=== PATIENT | female | born 1975 | race American Indian/Alaskan Native ===

== ENCOUNTER 2020-03-11 14:15 | Observation (INO) | payer OTHER ==
[2020-03-11 15:32] LABS: Basophils % (Auto) 0.1 % (0.0-1.8); Eosinophils % (Auto) 0.2 % (0.0-4.3); Hematocrit 36.6 % (30.3-42.9); Hemoglobin 11.6 gm/dl (10.1-14.3); Lymphocytes # (Auto) 1.3 K/mm3 (1.2-5.4); Lymphocytes % (Auto) 13.2 % (13.4-35.0); Mean Corpuscular HGB Conc 32 % (30-34); Mean Corpuscular Volume 82 fl (79-97); Monocytes # (Auto) 0.4 K/mm3 (0.0-0.8); Monocytes % (Auto) 4.3 % (0.0-7.3); Platelet Count 301 K/mm3 (140-440); Red Blood Count 4.46 M/mm3 (3.65-5.03); Red Cell Distribution Width 18.5 % (13.2-15.2)
[2020-03-11 15:54] LABS: Alanine Aminotransferase 34 units/L (7-56); Albumin 4.3 g/dL (3.9-5); BUN/Creatinine Ratio 12; Blood Urea Nitrogen 11 mg/dL (7-17); Calcium 9.7 mg/dL (8.4-10.2); Hemolysis Index 1
[2020-03-11] MEDS ORDERED: ACETAMINOPHEN 325 MG TAB PO ONE (16:00)
[2020-03-11] MEDS ORDERED: ACETAMINOPHEN 325 MG TAB ONE (16:07)
[2020-03-11] MEDS ORDERED: ONDANSETRON 4 MG/2 ML INJ IV ONE ×2 (18:24→20:07)
[2020-03-11] MEDS ORDERED: HYDROmorphone 1 MG/1 ML INJ IV ONE ×4 (18:24→21:35)
--- NOTE | 2020-03-11 18:28 | Emergency Department Report ---
ED Abdominal Pain HPI - General Chief Complaint: Abdominal Pain Stated Complaint: HYPERTENSION/ABD PAIN PUI?: No Time Seen by Provider: 03/11/20 17:42 Source: patient Mode of arrival: Wheelchair Limitations: No Limitations - History of Present Illness Initial Comments: Patient is a 44-year-old female that presents emergency room with complaints of left lower quadrant pain. Patient states that the left lower quadrant pain is a 10 out of 10. Patient states the left lower quadrant pain is radiating to her left flank and back. Patient states the pain is better with rest and worse with movement and palpation. Patient states the pain is also worse with vomiting. Patient also complains of nausea and vomiting. Patient states her symptoms been going on for 2 days. Patient denies constipation. Patient denies blood in her vomitus. Patient denies chest pain. Patient denies shortness of breath. Patient denies fever and chills. Patient found to have high blood pressure. Patient states she stopped taking her blood pressure medication since it makes her dizzy. Patient states she is on 10 mg of Norvasc. Patient states she has Norvasc at home but just will not take it. Patient denies chest pain. Patient denies headache. Patient denies neck pain. Patient denies blurry vision. Patient denies syncope. Patient denies recent travel. Patient denies recent international travel. Patient denies exposure to the novel coronavirus. Patient denies sick contacts. Patient denies fever and chills. Patient denies cough. Patient denies diarrhea. Patient denies coming in contact with anybody with symptoms of the novel coronavirus. MD Complaint: abdominal pain -: Sudden Location: LLQ Radiation: L flank Migration to: no migration Severity: severe Severity scale (0 -10): 10 Quality: stabbing Consistency: constant Improves With: rest Worsens With: movement Associated Symptoms: nausea, vomiting. denies: diarrhea, fever, chills, constipation, dysuria, hematemesis, hematochezia, melena, hematuria, anorexia, syncope - Related Data Home Medications Medication Instructions Recorded Confirmed Last Taken amLODIPine 10 mg PO DAILY 03/12/20 Unknown Allergies Allergy/AdvReac Type Severity Reaction Status Date / Time No Known Allergies Allergy Unverified 03/14/15 13:08 ED Review of Systems ROS: Stated complaint: HYPERTENSION/ABD PAIN Other details as noted in HPI Constitutional: denies: chills, fever Eyes: denies: eye pain, eye discharge, vision change ENT: denies: ear pain, throat pain Respiratory: denies: cough, shortness of breath, wheezing Cardiovascular: denies: chest pain, palpitations Endocrine: no symptoms reported Gastrointestinal: abdominal pain, nausea, vomiting. denies: diarrhea Genitourinary: denies: urgency, dysuria, discharge Musculoskeletal: denies: back pain, joint swelling, arthralgia Skin: denies: rash, lesions Neurological: denies: headache, weakness, paresthesias Psychiatric: denies: anxiety, depression Hematological/Lymphatic: denies: easy bleeding, easy bruising ED Past Medical Hx - Past Medical History Previous Medical History?: Yes Hx Hypertension: Yes Hx Congestive Heart Failure: No Hx Diabetes: No Hx Asthma: No Hx COPD: No Hx HIV: No - Surgical History Past Surgical History?: Yes Additional Surgical History: tubal ligation - Family History Family history: no significant - Social History Smoking Status: Never Smoker Substance Use Type: Alcohol (occasional) - Medications Home Medications: Home Medications Medication Instructions Recorded Confirmed Last Taken Type amLODIPine 10 mg PO DAILY 03/12/20 Unknown History ED Physical Exam - General Limitations: No Limitations General appearance: alert, in no apparent distress - Head Head exam: Present: atraumatic, normocephalic - Eye Eye exam: Present: normal appearance - ENT ENT exam: Present: mucous membranes moist - Neck Neck exam: Present: normal inspection - Respiratory Respiratory exam: Present: normal lung sounds bilaterally. Absent: respiratory distress - Cardiovascular Cardiovascular Exam: Present: regular rate, normal rhythm. Absent: systolic murmur, diastolic murmur, rubs, gallop - GI/Abdominal GI/Abdominal exam: Present: soft, tenderness (Left lower quadrant tenderness, left flank tenderness.), normal bowel sounds - Extremities Exam Extremities exam: Present: normal inspection - Back Exam Back exam: Present: normal inspection, tenderness, CVA tenderness (L) - Neurological Exam Neurological exam: Present: alert, oriented X3 - Psychiatric Psychiatric exam: Present: normal affect, normal mood - Skin Skin exam: Present: warm, dry, intact, normal color. Absent: rash ED Course Vital Signs 03/11/20 03/11/20 03/11/20 14:25 14:29 16:13 Temperature 98.2 F Pulse Rate 68 Respiratory 20 22 16 Rate Blood Pressure 234/121 O2 Sat by Pulse 97 Oximetry 03/11/20 03/11/20 03/11/20 16:16 18:34 18:45 Temperature Pulse Rate 65 63 Respiratory 19 Rate Blood Pressure 219/112 221/116 O2 Sat by Pulse 100 99 100 Oximetry 03/11/20 03/11/20 03/11/20 19:00 19:35 19:45 Temperature Pulse Rate 79 75 61 Respiratory 25 H 28 H 20 Rate Blood Pressure 181/122 181/122 181/122 O2 Sat by Pulse 99 98 Oximetry 03/11/20 03/11/20 03/11/20 20:10 20:15 20:31 Temperature Pulse Rate Respiratory Rate Blood Pressure 198/97 212/112 204/100 O2 Sat by Pulse 99 95 96 Oximetry 03/11/20 03/11/20 03/11/20 20:45 21:21 21:30 Temperature Pulse Rate Respiratory Rate Blood Pressure 198/97 198/97 198/97 O2 Sat by Pulse 97 93 87 Oximetry 03/11/20 03/11/20 03/11/20 21:46 22:00 22:27 Temperature Pulse Rate Respiratory Rate Blood Pressure 198/97 198/97 177/102 O2 Sat by Pulse 100 Oximetry 03/11/20 03/11/20 03/11/20 22:30 22:45 23:00 Temperature Pulse Rate Respiratory Rate Blood Pressure 159/100 148/83 144/88 O2 Sat by Pulse 99 93 95 Oximetry - Reevaluation(s) Reevaluation #1: Patient complaining of severe pain. Patient will be given Dilaudid. Patient will have a CT scan after the IV is placed. 03/11/20 18:25 Reevaluation #2: Patient has CT scan and patient is complaining of severe pain. Patient will be given another milligram of Dilaudid. 03/11/20 20:06 Reevaluation #3: Patient states the pain is better but is starting to increase. Patient will be given 0.5 mg of Dilaudid. Patient will also be given fluids and IV antibiotics. I discussed all results with patient. I discussed plan of care with patient. Patient agrees with plan of care and admission. Patient to be admitted to the hospitalist service. 03/11/20 21:26 - Consultations Consultation #1: Hospitalist consulted for admission. Hospitalist to admit patient. 03/11/20 21:26 ED Medical Decision Making - Lab Data Result diagrams: 03/11/20 14:55 03/11/20 14:55 - Radiology Data Radiology results: report reviewed CT ABDOMEN AND PELVIS WITH CONTRAST HISTORY: llq abd pain. COMPARISON: None. TECHNIQUE: CT images of the abdomen and pelvis were obtained following administ ration of intravenous contrast. All CT scans at this location are performed using CT dose reduction for ALARA by means of automated exposure control. CONTRAST: 100 ml of intravenous contrast administered. FINDINGS: Lungs/bones: Lung bases are clear. There is no acute osseous abnormality. Abdomen/pelvis: On the noncontrast portion of the exam, there is a 3 mm stone at the left UVJ with moderate associated hydronephrosis. Several additional nonobstructing calyceal calculi are present in both kidneys the largest on the left measuring 5 mm in the lower pole and largest on the right measuring 3 mm in the midpole region. No right-sided ureteral stone. There is also left-sided perinephric stranding and generalized parenchymal edema. The liver contains a tiny cyst in the posterior segment. The gallbladder, spleen, pancreas, adrenals, and proximal GI tract appear unremarkable. Urinary bladder and reproductive organs are unremarkable with no acute colonic abnormality. The appendix and terminal ileum appear normal. IMPRESSION: 1. Distal left ureteral stone at the UVJ measuring 3 mm with moderate left-sided hydronephrosis, left-sided edema, and perinephric stranding. 2. Bilateral nonobstructive nephrolithiasis. - Medical Decision Making Patient is a 44-year-old female that presents emergency room with complaints of left lower quadrant pain radiating to left flank and left back. Patient had labs done which were essentially unremarkable. Patient's urine was negative. Patient had symptoms of pyelonephritis versus a kidney stone and patient had a CT scan of the abdomen. Patient CT scan of the abdomen showed pyelonephritis and a 3 mm kidney stone. Patient given fluids and pain medications. Patient's pain slightly improved. Patient also given Flomax. Patient also given antibiotics IV in the ER. Patient also noted on initial evaluation to have elevated blood pressure, patient has been noncompliant with her blood pressure medication. Patient's blood pressure slowly improved after the patient's pain improved. Patient admitted to the hospitalist service for further evaluation and treatment. - Differential Diagnosis uti. Diverticulitis, kidney stone, pyelonephritis, Critical Care Time: Yes Critical care time in (mins) excluding proc time.: 35 Critical care attestation.: If time is entered above; I have spent that time in minutes in the direct care of this critically ill patient, excluding procedure time. Critical Care Time: 35 minutes ED Disposition Clinical Impression: Flank pain, Renal stone, Pyelonephritis, Noncompliance, Hypertensive urgency Abdominal pain Qualifiers: Abdominal location: left lower quadrant Qualified Code(s): R10.32 - Left lower quadrant pain Hydronephrosis Qualifiers: Hydronephrosis type: with renal calculous obstruction Qualified Code(s): N13.2 - Hydronephrosis with renal and ureteral calculous obstruction Hypertension Qualifiers: Hypertension type: essential hypertension Qualified Code(s): I10 - Essential (primary) hypertension Disposition: 09 OP ADMIT IP TO THIS HOSP Is pt being admited?: Yes Does the pt Need Aspirin: No Condition: Critical Time of Disposition: 21:35
--- NOTE | 2020-03-11 20:04 | Cat Scan Report ---
CT ABDOMEN AND PELVIS WITH CONTRAST HISTORY: llq abd pain. COMPARISON: None. TECHNIQUE: CT images of the abdomen and pelvis were obtained following administration of intravenous contrast. All CT scans at this location are performed using CT dose reduction for ALARA by means of automated exposure control. CONTRAST: 100 ml of intravenous contrast administered. FINDINGS: Lungs/bones: Lung bases are clear. There is no acute osseous abnormality. Abdomen/pelvis: On the noncontrast portion of the exam, there is a 3 mm stone at the left UVJ with m oderate associated hydronephrosis. Several additional nonobstructing calyceal calculi are present in both kidneys the largest on the left measuring 5 mm in the lower pole and largest on the right measur ing 3 mm in the midpole region. No right-sided ureteral stone. There is also left-sided perinephric s tranding and generalized parenchymal edema. The liver contains a tiny cyst in the posterior segment. The gallbladder, spleen, pancreas, adrenals, and proximal GI tract appear unremarkable. Urinary bladder and reproductive organs are unremarkable with no acute colonic abnormality. The appen daisy and terminal ileum appear normal. IMPRESSION: 1. Distal left ureteral stone at the UVJ measuring 3 mm with moderate left-sided hydronephrosis, left -sided edema, and perinephric stranding. 2. Bilateral nonobstructive nephrolithiasis. Signer Name: Florentino Zambrano MD Signed: 03/11/2020 8:00 PM Workstation Name: [id number]
[2020-03-11 20:06] LABS: Bilirubin,Urine NEG (Negative); Blood,Urine NEG (Negative); Color,Urine Colorless (Yellow); Mucus,Urine FEW /HPF; Urobilinogen,Urine < 2.0 mg/dL (<2.0); WBC,Urine < 1.0 /HPF (0.0-6.0)
[2020-03-11] MEDS ORDERED: TAMSULOSIN 0.4 MG CAP PO ONE (21:34)
[2020-03-11] MEDS ORDERED: CEFEPIME/NS 2 GM/100 ML 2 GM/100 ML BAG IV ONE (21:34)
[2020-03-11] MEDS ORDERED: SODIUM CHLORIDE 0.9% 1000 ML 1,000 ML IV ONE (21:34)
[2020-03-11] MEDS ORDERED: ONDANSETRON 4 MG/2 ML INJ IV PRN (23:34)
[2020-03-11] MEDS ORDERED: MAGNESIUM HYDROXIDE (MOM) ORAL LIQD UDC PO PRN (23:34)
[2020-03-11] MEDS ORDERED: ACETAMINOPHEN 325 MG TAB PO PRN (23:34)
[2020-03-11] MEDS ORDERED: MORPHINE 2 MG/1 ML INJ IV PRN (23:34)
--- NOTE | 2020-03-11 23:43 | History and Physical Report ---
History of Present Illness Date of examination: 03/11/20 Date of admission: 03/11/2020 Chief complaint: Abdominal Pain History of present illness: Patient is a 44-year-old female presents to the emergency room today complaining of abdominal pain which started about 2 days ago. Abdominal pain is said to be in the left lower quadrant and radiating towards the back and the left flank. She has had associated nausea and vomiting. On a scale of 10 pain was about 10/10 in severity. No known relieving or exacerbating factor. Patient denies any fever or chills, no chest pain no shortness of breath, no headache or dizziness, no diaphoresis. She denies any hematuria or dysuria and she also denies any urinary frequency. Patient denies any sick contacts and no recent travel, no contact with anyone with COVID-19. Patient has known history of hypertension and admits that she has not been quite compliant with her medication-amlodipine 10 mg daily stating that the medication makes her feel dizzy at times. Work-up in the emergency room today including CT scan of the abdomen and pelvis reveals : Distal left ureteral stone at the UVJ measuring 3 mm with moderate left-sided hydronephrosis, left-sided edema, and perinephric stranding. Bilateral nonobstructive nephrolithiasis. Patient commenced on IV fluid and empiric IV antibiotics for pyelonephritis. Past History Past Medical History: hypertension Past Surgical History: Other (Tubal Ligation) Social history: alcohol abuse (Occasional alcohol) Family history: hypertension (Mother and Grand Mother), other (Glaucoma in mother) Medications and Allergies Allergies Allergy/AdvReac Type Severity Reaction Status Date / Time No Known Allergies Allergy Unverified 03/14/15 13:08 Home Medications Medication Instructions Recorded Confirmed Last Taken Type amLODIPine 10 mg PO DAILY 03/12/20 Unknown History Active Meds: Active Medications Acetaminophen (Tylenol) 650 mg PO Q4H PRN PRN Reason: Pain MILD(1-3)/Fever >100.5/DEL [place]STILLO Enoxaparin Sodium (Enoxaparin) 40 mg SUB-Q QDAY@2200 RUI; Protocol Sodium Chloride (Nacl 0.9% 1000 Ml) 1,000 mls @ 150 mls/hr IV DIRECT RUI Cefepime HCl (Cefepime/Ns 1 Gm/100 Ml) 1 gm in 100 mls @ 200 mls/hr IV Q8HR RUI; Protocol Magnesium Hydroxide (Milk Of Magnesia) 30 ml PO Q4H PRN PRN Reason: Constipation Morphine Sulfate (Morphine) 2 mg IV Q4H PRN PRN Reason: Pain, Moderate (4-6) Ondansetron HCl (Zofran) 4 mg IV Q8H PRN PRN Reason: Nausea And Vomiting Sodium Chloride (Sodium Chloride Flush Syringe 10 Ml) 10 ml IV BID RUI Sodium Chloride (Sodium Chloride Flush Syringe 10 Ml) 10 ml IV PRN PRN PRN Reason: LINE FLUSH Review of Systems Constitutional: no fever, no chills Ears, nose, mouth and throat: no nasal congestion, no sore throat Cardiovascular: no chest pain, no palpitations Respiratory: no cough, no shortness of breath Gastrointestinal: abdominal pain, no nausea, no vomiting, no diarrhea Genitourinary Female: pelvic pain, flank pain, no dysuria, no hematuria, no kidney stones Musculoskeletal: no neck pain, no low back pain Integumentary: no rash, no pruritis Neurological: no headaches, no change in mentation Psychiatric: no anxiety, no depression Exam - Constitutional Vitals: Temp Pulse Resp BP Pulse Ox 98.2 F 61 20 144/88 95 03/11/20 14:25 03/11/20 19:45 03/11/20 19:45 03/11/20 23:00 03/11/20 23:00 General appearance: Present: no acute distress, well-nourished - EENT Eyes: Present: PERRL, EOM intact. Absent: scleral icterus ENT: hearing intact, clear oral mucosa, dentition normal - Neck Neck: Present: supple, normal ROM - Respiratory Respiratory effort: normal Respiratory: bilateral: CTA - Cardiovascular Rhythm: regular Heart Sounds: Present: S1 & S2. Absent: gallop, systolic murmur, diastolic murmur, rub - Extremities Extremities: no ischemia, pulses intact, pulses symmetrical, No edema, Full ROM Peripheral Pulses: within normal limits - Abdominal General gastrointestinal: Present: soft, non-tender, non-distended, normal bowel sounds. Absent: mass - Integumentary Integumentary: Present: clear, warm, dry. Absent: rash - Musculoskeletal Musculoskeletal: strength equal bilaterally - Psychiatric Psychiatric: appropriate mood/affect, intact judgment & insight, memory intact, cooperative - Neurologic Neurologic: CNII-XII intact, no focal deficits, moves all extremities Results - Labs CBC & Chem 7: 03/11/20 14:55 03/11/20 14:55 Labs: Abnormal lab results 03/11/20 03/11/20 03/11/20 Range/Units 14:55 14:55 19:38 MCH 26 L (28-32) pg RDW 18.5 H (13.2-15.2) % Lymph % (Auto) 13.2 L (13.4-35.0) % Seg Neutrophils % 82.2 H (40.0-70.0) % Seg Neutrophils # 8.2 H (1.8-7.7) K/mm3 Potassium 3.4 L (3.6-5.0) mmol/L Carbon Dioxide 16 L (22-30) mmol/L Glucose 203 H (65-100) mg/dL Urine pH 8.0 H (5.0-7.0) Assessment and Plan - Patient Problems (1) Pyelonephritis Current Visit: Yes Status: Acute Plan to address problem: Patient placed on empiric IV antibiotics. (2) Renal stone Current Visit: Yes Status: Acute Plan to address problem: We will continue on generous IV fluid hydration and analgesic medication. We will consider urology evaluation prior to discharge. (3) Hypertension Current Visit: Yes Status: Acute Qualifiers: Hypertension type: essential hypertension Plan to address problem: Patient counseled on compliance with medication. We will resume routine antihypertensive medication and monitor vital signs closely. (4) DVT prophylaxis Current Visit: Yes Status: Acute Plan to address problem: Patient placed on subcutaneous Lovenox. (5) Full code status Current Visit: Yes Status: Acute
[2020-03-11] MEDS ORDERED: SODIUM CHLORIDE 0.9% 1000 ML 1,000 ML IV SCH (23:45)
[2020-03-12] MEDS ORDERED: POTASSIUM CHLORIDE 10 MEQ 10 MEQ/100 ML BAG IV ONE (05:04)
[2020-03-12] MEDS ORDERED: CEFEPIME/NS 1 GM/100 ML 1 GM/100 ML BAG IV SCH (06:00)
[2020-03-12 07:41] LABS: Basophils % (Auto) 0.4 % (0.0-1.8); Eosinophils % (Auto) 0.1 % (0.0-4.3); Hematocrit 33.8 % (30.3-42.9); Hemoglobin 11.1 gm/dl (10.1-14.3); Lymphocytes # (Auto) 1.4 K/mm3 (1.2-5.4); Lymphocytes % (Auto) 11.6 % (13.4-35.0); Mean Corpuscular HGB Conc 33 % (30-34); Mean Corpuscular Volume 81 fl (79-97); Monocytes # (Auto) 1.1 K/mm3 (0.0-0.8); Monocytes % (Auto) 9.1 % (0.0-7.3); Platelet Count 247 K/mm3 (140-440); Red Blood Count 4.18 M/mm3 (3.65-5.03)
[2020-03-12 07:49] LABS: INR 1.01 (0.87-1.13)
[2020-03-12 08:01] LABS: BUN/Creatinine Ratio 13; Blood Urea Nitrogen 12 mg/dL (7-17); Hemolysis Index 2
[2020-03-12] MEDS ORDERED: amLODIPine 10 MG TAB PO SCH (10:00)
[2020-03-12 10:19] VITALS: BP 147/92
--- NOTE | 2020-03-12 14:09 | Discharge Summary ---
Providers - Providers Date of Admission: 03/11/20 23:10 Date of discharge: 03/12/20 Attending physician: TRACEY HERNANDEZ Primary care physician: TECHNICAL TRAINER Hospitalization Condition: Critical Hospital course: Patient is a 44-year-old female presents to the emergency room today complaining of abdominal pain which started about 2 days ago. Work-up in the emergency room today including CT scan of the abdomen and pelvis reveals : Distal left ureteral stone at the UVJ measuring 3 mm with moderate left-sided hydronephrosis, left-sided edema, and perinephric stranding. Bilateral nonobstructive nephrolithiasis. Patient commenced on IV fluid and empiric IV antibiotics for possible pyelonephritis. Patient was admitted to the hospital for observation. By next day she was feeling great, abdominal pain resolved. Patient did not have any nausea and vomiting she was able to tolerate diet. Patient was then discharged home in stable condition with outpatient follow-up. Discharge diagnosis: Pyelonephritis, treated with antibiotics Nephrolithiasis, likely passed out with a urine Hypertension, stable Hydronephrosis, renal function was stable, will continue outpatient follow-up Disposition: DC- TO HOME OR SELFCARE Time spent for discharge: 34 minutes Core Measure Documentation - Palliative Care Palliative Care/ Comfort Measures: Not Applicable - Core Measures Any of the following diagnoses?: none Exam - Constitutional Vitals: Temp Pulse Resp BP Pulse Ox 98.3 F 83 18 147/92 97 03/12/20 04:44 03/12/20 10:18 03/12/20 04:44 03/12/20 10:18 03/12/20 04:44 General appearance: Present: no acute distress, obese - EENT Eyes: Present: PERRL ENT: hearing intact, clear oral mucosa - Neck Neck: Present: supple, normal ROM - Respiratory Respiratory effort: normal Respiratory: bilateral: CTA - Cardiovascular Heart Sounds: Present: S1 & S2. Absent: rub, click - Extremities Extremities: pulses symmetrical, No edema Peripheral Pulses: within normal limits - Abdominal General gastrointestinal: Present: soft, non-tender, non-distended, normal bowel sounds - Integumentary Integumentary: Present: clear, warm, dry - Musculoskeletal Musculoskeletal: gait normal, strength equal bilaterally - Psychiatric Psychiatric: appropriate mood/affect, intact judgment & insight - Neurologic Neurologic: CNII-XII intact, moves all extremities Plan Activity: advance as tolerated Weight Bearing Status: Weight Bear as Tolerated Diet: low fat, low salt Follow up with: PRIMARY CARE, [Primary Care Provider] - 3-5 Days Prescriptions: Ciprofloxacin HCl [Ciprofloxacin TAB] 500 mg PO Q12HR #6 tab oxyCODONE /ACETAMINOPHEN [Percocet 5/325] 1 tab PO Q6HR PRN #10 tablet PRN Reason: Pain
[2020-03-12] MEDS ORDERED: ENOXAPARIN 40 MG/0.4 ML INJ SUB-Q SCH (22:00)
== END 2020-03-12 15:53 | disposition home or self-care (01) ==
LOC: ED 14:15 → 3A 23:10
PROVIDERS: ADMIT Internal Medicine Geriatric Medicine; ATTEND Internal Medicine
DX: N10 Acute pyelonephritis (principal); N20.0 Calculus of kidney; N13.30 Unspecified hydronephrosis; N12 Tubulo-interstitial nephritis, not specified as acute or chronic; I16.0 Hypertensive urgency; Z98.51 Tubal ligation status
CPT/HCPCS: 36415; 74178; 80048; 80053; 81001; 84703; 85025; 85610; 93005; 96365; 96366; 96375; 96376; 99291; G0378; J0692; J1170; J2405; J3480; J7030; Q9967